=== PATIENT | female | born 1930 | race Caucasian/White ===

== ENCOUNTER 2018-09-30 09:33 | Emergency (ER) | payer MEDICARE, OTHER ==
--- NOTE | 2018-09-30 09:47 | ED.PDOC ---
History of Present Illness - General Chief Complaint: Problem Time Seen by Provider: 09/30/18 09:45 Source: patient, RN notes reviewed Additional Information: 88 YEAR OLD HERE IN THE ER FOR EVALUATION OF FEVER NOT FEELING WELL FOR THE PAST WEEK SHE SPENCER D BEEN TREATED WITH MACRODANTIN FOR UTI BY HER PHYSICIAN SHE HAD TAKEN THE ANTIBIOTIC FOR 3 DAYS WITHOUT ANY IMPROVEMENT SHE HAS BEEN NAUSEATED GENERAL FEELING OF FATIGUE AND WEAKNESS SHE HAS NO COUGH DIFFICULTY BREATHING NO SORE THORAT NO SINUS SYMPTOMS NO HEADACHE OR NECK STIFFNESS - History of Present Illness Timing/Duration: 1 week Severity: moderate Improving Factors: nothing Worsening Factors: nothing Associated Symptoms: denies symptoms Allergies/Adverse Reactions: Allergies Codeine Allergy (Verified 09/30/18 09:53) Vomitting Penicillin V Allergy (Verified 09/30/18 09:53) Rash Home Medications: Ambulatory Orders Cefuroxime Axetil [Ceftin] 500 mg PO Q12H #20 tablet 09/30/18 Estradiol [Estrace] 1 mg PO DAILY 09/30/18 Metoprolol Tartrate [Lopressor] 50 mg PO BID 09/30/18 Review of Systems - Review of Systems Constitutional: States: no symptoms reported EENTM: States: no symptoms reported Respiratory: States: no symptoms reported Cardiology: States: no symptoms reported Gastrointestinal/Abdominal: States: no symptoms reported Genitourinary: States: no symptoms reported Musculoskeletal: States: no symptoms reported Skin: States: no symptoms reported Neurological: States: no symptoms reported Endocrine: States: no symptoms reported Hematologic/Lymphatic: States: no symptoms reported Past Medical History (General) - Patient Medical History Hx Seizures: No Hx Stroke: No Hx Dementia: No Hx Asthma: No Hx of COPD: No Hx Cardiac Disorders: Yes Hx Congestive Heart Failure: No Hx Pacemaker: No Hx Hypertension: Yes Hx Thyroid Disease: No Hx Diabetes: No Hx Gastroesophageal Reflux: No Hx Renal Disease: No Hx Cancer: No Hx of HIV: No Hx Hepatitis C: No MRSA Source:: Wound - Vaccination History Hx Tetanus, Diphtheria Vaccination: Yes Hx Influenza Vaccination: No Hx Pneumococcal Vaccination: Yes - Social History Hx Tobacco Use: Yes Hx Chewing Tobacco Use: No Hx Alcohol Use: Yes Hx Substance Use: No Hx Substance Use Treatment: No Hx Depression: No Hx Physical Abuse: No Hx Emotional Abuse: No Hx Suspected Abuse: No - Female History Patient : No Family Medical History - Family History Mother Family History: No Known Physical Exam - Physical Exam General Appearance: Alert, Comfortable Eye Exam: bilateral normal Ears, Nose, Throat: hearing grossly normal, normal ENT inspection, normal pharynx Neck: non-tender, full range of motion, supple Respiratory: normal breath sounds, no respiratory distress, no accessory muscle use Cardiovascular/Chest: normal peripheral pulses, regular rate, rhythm, no edema, no gallop, no JVD, no murmur Gastrointestinal/Abdominal: normal bowel sounds, non tender, soft, no organomegaly Back Exam: normal inspection, no CVA tenderness Extremity: normal range of motion, non-tender, normal inspection Skin Exam: normal color, warm/dry Lymphatic: no adenopathy Progress - Results/Orders Results/Orders: Laboratory Tests 09/30/18 09/30/18 09/30/18 10:45 10:45 12:55 WBC 10.9 H RBC 3.90 L Hgb 12.0 Hct 36.7 MCV 94.2 MCH 30.7 MCHC 32.6 L RDW 13.7 Plt Count 168 MPV 9.5 Absolute Neuts (auto) 9.20 H Absolute Lymphs (auto) 0.70 L Absolute Monos (auto) 1.00 H Absolute Eos (auto) 0.00 Absolute Basos (auto) 0.00 Neutrophils % 84.6 H Lymphocytes % 6.0 L Monocytes % 9.2 H Eosinophils % 0.0 L Basophils % 0.2 Sodium 135 Potassium 3.4 L Chloride 100 L Carbon Dioxide 23 Anion Gap 15.4 BUN 16 Creatinine 0.99 BUN/Creatinine Ratio 16.2 Random Glucose 122 H Serum Osmolality 272.6 L Calcium 8.6 Total Bilirubin 1.7 H AST 21 ALT 16 Alkaline Phosphatase 69 Serum Total Protein 7.6 Albumin 3.3 Globulin 4.3 H Albumin/Globulin Ratio 0.8 L Urine Color Yellow Urine Appearance Clear Urine pH 6.0 Ur Specific [place] 1.015 Urine Protein 100 H Urine Glucose (UA) Negative Urine Ketones 40 H Urine Blood Small H Urine Nitrite Negative Urine Bilirubin Small H Urine Urobilinogen 2.0 H Ur Leukocyte Esterase Moderate H Urine RBC 3-5 H Urine WBC >50 H Ur Epithelial Cells 1-3 Urine Bacteria 1+ Departure - Departure Clinical Impression: Urinary tract infection Time of Disposition: 14:18 Disposition: Discharge to Home or Self Care Condition: Good Departure Forms: ED Discharge - Pt. Copy, Patient Portal Self Enrollment Instructions: DI for Urinary Tract Infection (UTI) Diet: regular diet Referrals: Sanket Serna MD [Primary Care Provider] - 1-2 Weeks Prescriptions: Cefuroxime Axetil [Ceftin] 500 mg PO Q12H #20 tablet Home Medications: Ambulatory Orders Cefuroxime Axetil [Ceftin] 500 mg PO Q12H #20 tablet 09/30/18 Estradiol [Estrace] 1 mg PO DAILY 09/30/18 Metoprolol Tartrate [Lopressor] 50 mg PO BID 09/30/18 Comments: PLEASE FOLLOW UP WITH PC FOR A REPEAT CHEST X RAY IN ABOUT 10 DAYS
[2018-09-30] MEDS ORDERED: SODIUM CHLORIDE 0.9% 1000ML 1,000 ML ONE (10:10)
[2018-09-30] MEDS ORDERED: ACETAMINOPHEN 325 MG TAB ONE (10:11)
[2018-09-30] MEDS ORDERED: SODIUM CHLORIDE 0.9% 1000ML 1,000 ML IVS ONE (10:21)
--- NOTE | 2018-09-30 12:38 | RAD ---
EXAM DESCRIPTION: Chest,1 View CLINICAL HISTORY: 88 years Female, cough COMPARISON: 01/29/2016 IMPRESSION: Heart size and pulmonary vascularity are within normal limits. The lungs are mildly hyperexpanded. There is a small round opacity in the left lung base, which may represent atelectasis versus pneumonia. Recommend follow-up after therapy to confirm resolution and exclude a pulmonary neoplasm. No large pleural effusion or pneumothorax. No acute osseous abnormality. Electronically signed by: Pedro Peralta MD 09/30/2018 12:37 PM CDT
[2018-09-30] MEDS ORDERED: cefOXitin SODIUM 1 GM in SODIUM CHL 0.9% 50ML MIN-BAG+ 50 ML IVPB ONE (13:42)
[2018-09-30 14:39] VITALS: BP 127/70; TEMP 98.7; O2SAT 96
== END 2018-09-30 14:30 | disposition home or self-care (01) ==
LOC: ER 09:33
DX: N39.0 Urinary tract infection, site not specified (principal); I10 Essential (primary) hypertension; I51.9 Heart disease, unspecified; Z87.891 Personal history of nicotine dependence; Z79.899 Other long term (current) drug therapy; Z88.5 Allergy status to narcotic agent; Z88.0 Allergy status to penicillin

== ENCOUNTER → 2019-09-02 | Outpatient (CLI) | payer MEDICARE, OTHER ==
--- NOTE | 2019-09-03 07:15 | RAD ---
EXAM DESCRIPTION: Knee,Left Complete CLINICAL HISTORY: 88 years Female, PAIN IN LEFT KNEE COMPARISON: None. Findings: Location: Left knee No acute fracture or dislocation. Moderate to severe lateral compartment narrowing. Patella chhaya. Tricompartmental osteophytes. Small joint effusion. Osteopenia. 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 Electronically signed by: Noah Izaguirre MD 09/03/2019 7:14 AM CDT
--- NOTE | 2019-09-03 07:16 | RAD ---
EXAM DESCRIPTION: Knee,Right Complete CLINICAL HISTORY: 88 years Female, PAIN IN RIGHT KNEE COMPARISON: None. Findings: Location: Right knee No acute fracture or dislocation. Obliteration of the lateral compartment. Tricompartmental osteophytes. Osteopenia. Small joint effusion. 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 Electronically signed by: Noah Izaguirre MD 09/03/2019 7:15 AM CDT
--- NOTE | 2019-09-03 07:17 | RAD ---
EXAM DESCRIPTION: Pelvis CLINICAL HISTORY: 88 years Female, HIP PAIN COMPARISON: None. Findings: Pelvic phleboliths. Suspected prior pelvic reconstruction surgery. Osteopenia. Partially visualized lower lumbar spondylosis. Bilateral sacroiliac degenerative change. No acute fracture or dislocation. Mild bilateral hip osteoarthritis. 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 No acute fracture identified. Electronically signed by: Noah Izaguirre MD 09/03/2019 7:16 AM CDT
== END ==
LOC: RAD 08:57
PROVIDERS: ATTEND Orthopaedic Surgery
DX: M17.11 Unilateral primary osteoarthritis, right knee (principal); M17.12 Unilateral primary osteoarthritis, left knee; M16.0 Bilateral primary osteoarthritis of hip; M47.896 Other spondylosis, lumbar region; M47.898 Other spondylosis, sacral and sacrococcygeal region